=== PATIENT | male | born 1935 | race Caucasian/White ===

== ENCOUNTER → 2017-03-09 | Outpatient (CLI) | payer MEDICARE, BC ==
[~2017-03-09] MED LIST: ALLOPURINOL300 MG PO; BESIVANCE5 ML LEFT EYE; DAILY VITE1 EAC1 PO; EYE DROP LEFT EYE; OMEPRAZOLE20 MG PO; PREDNISOLONE AC15 ML LEFT EYE
== END | disposition home or self-care (01) ==
LOC: CDC 13:24
DX: Z01.810 Encounter for preprocedural cardiovascular examination (principal); R97.20 Elevated prostate specific antigen [PSA]
CPT/HCPCS: 93000

== ENCOUNTER → 2017-05-15 | Outpatient (CLI) | payer OTHER, BC | END | disposition home or self-care (01) | LOC: NUC 10:31 | DX: R93.7 Abnormal findings on diagnostic imaging of other parts of musculoskeletal system (principal); R97.20 Elevated prostate specific antigen [PSA] | CPT/HCPCS: 78306; A9503 ==